=== PATIENT | male | born 2000 | race Caucasian/White ===

== ENCOUNTER 2023-11-26 23:13 | Emergency (ER) | payer BC ==
[~2023-11-26] VITALS: Ht 167.6 cm; Wt 59.0 kg
[2023-11-26 23:22] VITALS: BP 123/86; PULSE 79; RESP 14; TEMP 97.3; O2SAT 99
[2023-11-27 00:15] VITALS: TEMP 97.3
[2023-11-27] MEDS ORDERED: ONDA-188 SL (00:35)
[2023-11-27 01:01] VITALS: BP 115/71; PULSE 89; RESP 16; O2SAT 98
== END 2023-11-27 01:01 | disposition home or self-care (01) ==
LOC: MED 23:13
DX: F10.129 Alcohol abuse with intoxication, unspecified (principal); F12.90 Cannabis use, unspecified, uncomplicated
CPT/HCPCS: 99283